=== PATIENT | male | born 1955 | race Caucasian/White ===

== ENCOUNTER 2022-07-09 01:49 | Emergency (ER) | payer OTHER, SELFPAY ==
[2022-07-09 02:05] VITALS: BP 167/109; PULSE 81; RESP 16; TEMP 36.3; O2SAT 98
--- NOTE | 2022-07-09 02:39 | ED.GENADULT ---
HPI - General Adult General Chief complaint: Extremity Pain/Injury, Upper Stated complaint: severe pain in rt arm, numbness in rt finger Time Seen by Provider: 07/09/22 02:29 History of Present Illness HPI narrative: 66-year-old man presenting with complaint of the pain in the right arm. His head in clings of this pain for some time but more recently has flared up. Does have some numbness in his 4th and 3rd finger of his right hand indicates the palm as well. And then pain in the medial or ulnar side forearm and then the back of the upper right arm is newer. Does not change with rotational movement of the neck. Is not really having back pain. has been complaining how he walks hunched over. 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 He is right-handed. Not necessarily weak. Has tried Tylenol which maybe helped assist a little bit. This could not sleep tonight due to the pain. No trauma noted. Related Data Allergies Allergy/AdvReac Type Severity Reaction Status Date / Time No Known Drug Allergies Allergy Verified 07/09/22 02:11 Review of Systems Status of ROS: Reports: 6 or more systems reviewed and unremarkable except as noted in History and below [facility] Social History Smoking Status: Never smoker Second hand tobacco smoke exposure: No How often do you have a drink containing alcohol: 2-3 times a week How often do you have six or more drinks on one occasion: Never AUDIT-C Alcohol total score: 3 Non-prescribed substance use: denies use Exam Narrative: Exam Narrative: Pleasant. Well muscled. Calm. Stoic I would say. Skin is warm and dry. No erythema or swelling appreciated. No evidence of trauma in neck back or right arm. Neck is supple. Spurling's does not cause more pain. No pain to palpation of the neck. No pain to palpation of trapezius musculature rhomboids. Breathing easily. Cardiovascular with regular rate and rhythm Rough large hands. No weakness. Good pulses. Subjective altered sensation in areas in as discussed above. Const: Vital Signs, click to edit/add: Vital Signs - 24 hr 07/09/22 02:05 07/09/22 03:13 Temperature 97.3 F L Pulse Rate [Right Pulse Oximeter] 81 78 Respiratory Rate 16 16 Blood Pressure [Le ft Upper Arm] 167/109 H 175/110 H Pulse Oximetry 98 98 Oxygen Delivery Me thod Room Air Room Air Documenting provider has reviewed patient's vital signs: yes Course Vital Signs Vital signs: Initial Vital Signs Temperature 97.3 F L 07/09/22 02:05 Temperature Source Temporal Artery Scan 07/09/22 02:05 Pulse Rate 81 07/09/22 02:05 Pulse Rhythm 07/09/22 02:05 Respiratory Rate 16 07/09/22 02:05 Blood Pressure 167/109 H 07/09/22 02:05 Blood Pressure Mean 128 07/09/22 02:05 Blood Pressure Position Semi-Fowlers 07/09/22 02:05 Pulse Oximetry 98 07/09/22 02:05 Oxygen Delivery Method 07/09/22 02:05 Vital Signs Temperature 97.3 F L 07/09/22 02:05 Pulse Rate 81 07/09/22 02:05 Respiratory Rate 16 07/09/22 02:05 Blood Pressure 167/109 H 07/09/22 02:05 Pulse Oximetry 98 07/09/22 02:05 Oxygen Delivery Method 07/09/22 02:05 Temperature 97.3 F L 07/09/22 02:05 Pulse Rate 78 07/09/22 03:13 Respiratory Rate 16 07/09/22 03:13 Blood Pressure 175/110 H 07/09/22 03:13 Pulse Oximetry 98 07/09/22 03:13 Oxygen Delivery Method 07/09/22 03:13 Medical Decision Making MDM Narrative Medical decision making narrative: No outward evidence of infection nor clinical story consistent with that. Does appear to be radiculitis/radiculopathy of some nature. Around a C7 distribution. Without recent trauma and distribution over the entire arm in some form, not sure that imaging we have available at this time would be particularly useful. I think trial of steroids and anti-inflammatories and pain medication otherwise would be in order. Discharge Plan Discharge Clinical Impression: Radicular pain in right arm Patient Disposition: Home, Self-Care Condition: Stable Additional Instructions: For now on with a little bit of food can take up to 800 mg of ibuprofen per dose. Alternatively could take up to 500 mg of naproxen 2 times daily. This can be combined with your prescribed medications here. Can continue with 1000 mg of acetaminophen per dose remember that each tablet of Northrop contains 325 mg of acetaminophen. Take the prednisone as 60 mg daily for 2 days then 40 mg daily for 5 days then 20 mg daily for 3 days. I would schedule followup toward the middle of your prednisone course with your primary care provider if possible for next step in care. See handout on stretches for upper back. Might be helpful. Northrop, Flexeril, prednisone from [facility]. Stand Alone Forms: [facility] Info Instructions
[2022-07-09] MEDS: HYDROCODONE-ACETAMIN 5-325 MG 1 TAB 2 TAB PO (03:12)
[2022-07-09 03:13] VITALS: BP 175/110; PULSE 78; RESP 16; O2SAT 98
== END 2022-07-09 03:51 | disposition home or self-care (01) ==
LOC: ED 02:56
PROVIDERS: Emergency Provider Family Medicine
DX: M79.601 Pain in right arm (principal)
CPT/HCPCS: 99283; 99284; A9270